=== PATIENT | female | born 1940 | race Caucasian/White ===

== ENCOUNTER 2018-12-17 09:37 | Outpatient (CLI) | payer MEDICARE, SELFPAY ==
[2018-12-17 10:00] VITALS: BP 193/87; PULSE 68; RESP 18
== END 2018-12-17 10:15 | disposition home or self-care (01) ==
LOC: INF 09:42
PROVIDERS: PCP Family Medicine; Visit Provider Family Medicine
DX: M85.89 Other specified disorders of bone density and structure, multiple sites (principal)
CPT/HCPCS: 96372; J0897

== ENCOUNTER 2019-06-29 08:50 | Outpatient (CLI) | payer MEDICARE, SELFPAY ==
[2019-06-29 09:30] VITALS: BP 135/57; PULSE 66; RESP 18; TEMP 36.4
== END 2019-06-29 09:45 | disposition home or self-care (01) ==
LOC: INF 09:02
PROVIDERS: Visit Provider Family Medicine
DX: M85.89 Other specified disorders of bone density and structure, multiple sites (principal)
CPT/HCPCS: 96372; J0897

== ENCOUNTER 2020-01-27 11:09 | Outpatient (CLI) | payer MEDICARE, SELFPAY ==
[2020-01-27 11:00] VITALS: BP 169/86; PULSE 75; RESP 20; TEMP 36.9; O2SAT 95
[2020-01-27 11:30] VITALS: BP 165/74; PULSE 68; RESP 20; TEMP 36.9; O2SAT 95
== END 2020-01-27 11:30 | disposition home or self-care (01) ==
LOC: INF 11:09
PROVIDERS: Visit Provider Obstetrics & Gynecology
DX: M85.89 Other specified disorders of bone density and structure, multiple sites (principal)
CPT/HCPCS: 96372; J0897

== ENCOUNTER 2020-08-15 08:45 | Outpatient (CLI) | payer MEDICARE, SELFPAY ==
[2020-08-15 09:09] VITALS: BP 167/98; PULSE 76; RESP 18; TEMP 36.4; O2SAT 99
== END 2020-08-15 09:09 | disposition home or self-care (01) ==
LOC: INF 08:53
PROVIDERS: Visit Provider Family Medicine
DX: M85.89 Other specified disorders of bone density and structure, multiple sites (principal)
CPT/HCPCS: 96372; J0897